=== PATIENT | male | born 2000 | race Caucasian/White ===

== ENCOUNTER 2025-03-07 13:25 | Emergency (ER) | payer OTHER ==
[~2025-03-07] VITALS: Ht 162.6 cm; Wt 82.0 kg
[2025-03-07 13:40] VITALS: O2SAT 98
[2025-03-07 16:00] VITALS: BP 135/76; PULSE 79; RESP 19; TEMP 36.8; O2SAT 99
== END 2025-03-07 18:23 | disposition home or self-care (01) ==
LOC: ER 13:25
DX: R11.10 Vomiting, unspecified (principal); F10.90 Alcohol use, unspecified, uncomplicated; Y90.9 Presence of alcohol in blood, level not specified
CPT/HCPCS: 99283